=== PATIENT | female | born 1990 | race Caucasian/White ===

== ENCOUNTER → 2016-10-09 | Outpatient (CLI) | payer BC ==
[~2016-10-09] MED LIST: BCPILLS PO
== END | disposition home or self-care (01) ==
LOC: C.PAPS 15:51
PROVIDERS: ATTEND Obstetrics & Gynecology
DX: Z01.411 Encounter for gynecological examination (general) (routine) with abnormal findings (principal); R87.610 Atypical squamous cells of undetermined significance on cytologic smear of cervix (ASC-US)

== ENCOUNTER → 2016-10-09 | Outpatient (CLI) | payer BC ==
[2016-10-13 00:48] LABS: CHLAMYDIA TRACH RNA*** NOT DETECTED (NOT DETECTED); GC (NEIS GONORRHOEAE)RNA** NOT DETECTED (NOT DETECTED)
== END | disposition home or self-care (01) ==
LOC: C.LABSPEC 15:19
PROVIDERS: ATTEND Obstetrics & Gynecology
DX: Z11.3 Encounter for screening for infections with a predominantly sexual mode of transmission (principal)

== ENCOUNTER 2016-11-14 13:14 | Emergency (ER) | payer BC ==
[~2016-11-14] VITALS: Ht 165.1 cm; Wt 58.2 kg
[2016-11-14 13:17] VITALS: BP 137/90; PULSE 86; TEMP 36.7; O2SAT 99; Ht 165.1 cm; Wt 58.2 kg
--- NOTE | 2016-11-14 14:07 | DIAGNOSTIC IMAGING REPORT ---
NASAL BONES MIN 3 VIEWS CLINICAL HISTORY: Nasal pain status post trauma COMPARISON STUDY: No previous studies for comparison. FINDINGS: There is a nondisplaced nasal bone fracture. There is no orbital emphysema. No air-fluid levels are visualized within the maxillary sinuses. IMPRESSION: Nondisplaced nasal bone fracture Electronically signed by: Willy Zepeda M.D. 11/14/2016 2:05 PM Dictated Date/Time: 11/14/2016 2:05 PM
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
[2016-11-14] MEDS ORDERED: BCPILLS PO (14:15)
== END 2016-11-14 14:18 | disposition home or self-care (01) ==
LOC: C.EDB 13:16 → C.EDD 14:18
DX: S02.2XXA Fracture of nasal bones, initial encounter for closed fracture (principal); S01.21XA Laceration without foreign body of nose, initial encounter; S00.81XA Abrasion of other part of head, initial encounter; W22.8XXA Striking against or struck by other objects, initial encounter; Y93.72 Activity, wrestling

== ENCOUNTER → 2017-03-31 | Outpatient (CLI) | payer BC | END | disposition home or self-care (01) | LOC: C.LABSPEC 11:01 | PROVIDERS: ATTEND Physician Assistant | DX: Z30.430 Encounter for insertion of intrauterine contraceptive device (principal) ==